=== PATIENT | female | born 1965 | race Caucasian/White ===

== ENCOUNTER 2021-09-22 12:18 | Emergency (ER) | payer BC, SELFPAY ==
--- NOTE | ~2021-09-22 | XR_ITS ---
EXAMINATION: XR HAND, LEFT CLINICAL INFORMATION: Crush injury COMPARISON: None TECHNIQUE: PA, lateral, and oblique views of the left hand. FINDINGS: There is a nondisplaced fracture seen involving the distal tuft of the fourth distal phalanx. No dislocation identified. Joint spaces are maintained. XR/XR hand LT min 3V IMPRESSION: Nondisplaced fracture distal tuft left fourth finger.
[2021-09-22 14:12] VITALS: BP 138/94; PULSE 83; RESP 16; TEMP 36.9; O2SAT 99; BMI 34.3
[2021-09-22 17:19] VITALS: PULSE 68; RESP 16; O2SAT 97
--- NOTE | 2021-09-22 17:37 | ED.EXTPRO ---
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 She reports pain at the distal tip of the ring finger only. She denies any numbness or tingling. She has pain with flexion and full extension but is able to do both. She is right-hand dominant. She is not on any anticoagulation. No other injuries. MD Complaint: extremity pain Onset (ago): hour(s) Pain Consistency: constant Location: left Severity scale (1-10): 8 Quality: aching Radiation: distal Relieving factors: immobilization Exacerbating factors: range of motion and palpation Associated symptoms: denies other symptoms Related Data Allergies Allergy/AdvReac Type Severity Reaction Status Date / Time No Known Allergies Allergy Verified 09/22/21 14:15 Review of Systems Review of Systems: Constitutional: No Fever, No Chills Musculoskeletal: + joint pain, No Myalgias Skin: No Skin Lesions, No rash Neuro: No Weakness, No Numbness Heme/Lymph: No Bruising PMFSH Past Medical History Medical History (Updated 09/22/21 @ 17:39 by MANDI Monterroso) Thyroid disease Social History Social History Advance Directives: No Advance Directives Information Provided: Yes Patient : No Physical Exam Vital Signs: Vital Signs: Last Vital Signs Temp 98.5 F 09/22/21 14:12 Pulse 68 09/22/21 17:19 Resp 16 09/22/21 17:19 BP 138/94 H 09/22/21 14:12 Pulse Ox 97 09/22/21 17:19 BMI result Body Mass Index 34.3 Appearance: Alert. Oriented X3. No acute distress. HEENT: normal inspection CVS: Normal heart rate and rhythm. Pulses normal. Respiratory: No respiratory distress. Skin: Skin warm and dry. Normal skin color. Normal skin turgor. No rashes. Extremities: Normal inspection of the left hand. There is tenderness of the tip of the 4th finger with cap refill less than 3 seconds. No D IP or PIP tenderness. No MCP tenderness and no metacarpal tenderness. Normal radial pulse, finger is cool with good cap refill. Equal motorcoach operator strength bilaterally Neuro: Oriented X 3. No motor deficit. No sensory deficit. Course Course Course Narrative: 55-year-old female presenting to left ring finger pain at the tip after minor crush injury at work. X-ray showing a nondisplaced fracture of the distal tuft of the left 4th finger. Patient placed in a splint for comfort. Patient stable for discharge home with supportive care. Discharge Plan Discharge Clinical Impression: Closed fracture of tuft of distal phalanx of finger Patient Disposition: Home, Self-Care Instructions: Finger Fracture (ED) Additional Instructions: You have small fracture of the tip of your ring finger on your left hand. Wear the splint as needed for comfort. Take Motrin and Tylenol as needed for pain. Follow-up with your doctor as needed. Referrals: [facility] [Provider Group] - 2 days (Left index finger fracture.) Interventions: ED Discharge Assessment Last Done: 09/22/21 17:50 Discharge Date/Time: 09/22/21 17:50
== END 2021-09-22 17:50 | disposition home or self-care (01) ==
PROVIDERS: Emergency Provider Student in an Organized Health Care Education/Training Program; PCP Internal Medicine
DX: S62.665A Nondisplaced fracture of distal phalanx of left ring finger, initial encounter for closed fracture (principal); W23.1XXA Caught, crushed, jammed, or pinched between stationary objects, initial encounter; Y93.9 Activity, unspecified; Y92.9 Unspecified place or not applicable; Y99.0 Civilian activity done for income or pay
CPT/HCPCS: 29130; 73130; 99283